=== PATIENT | female | born 1975 | race Caucasian/White ===

== ENCOUNTER → 2023-04-26 12:07 | Outpatient (CLI) | payer OTHER, SELFPAY ==
--- NOTE | ~2023-04-26 | MM_ITS ---
EXAMINATION: MM screening tavon BI w eileen HISTORY: Screening mammogram TECHNIQUE: Craniocaudal and mediolateral oblique 3-D tomosynthesis images were obtained and synthetic 2-D images were generated. CAD analysis was submitted and interpreted. COMPARISON: 01/17/2017, 12/21/2016 BREAST PARENCHYMAL COMPOSITION: The breasts are heterogeneously dense, which may obscure small masses . FINDINGS: RIGHT BREAST: No suspicious mass, calcification, or architectural distortion are identified to sugges t malignancy. There has been no suspicious interval change. LEFT BREAST: There is a possible obscured mass in the anterior third of the outer breast 3 cm from th e nipple. IMPRESSION: 1. Possible left breast mass. 2. Additional mammographic views and possible breast ultrasound are recommended. BI-RADS Category 0: Incomplete: Needs additional imaging evaluation. Reviewed, dictated and finalized at location A. CASER IMPRESSION: 1. Possible left breast mass. 2. Additional mammographic views and possible breast ultrasound are recommended . BI-RADS Category 0: Incomplete: Needs additional imaging evaluation.
== END ==
PROVIDERS: PCP Family Medicine; Visit Provider Family Medicine
DX: Z12.31 Encounter for screening mammogram for malignant neoplasm of breast (principal); N63.25 Unspecified lump in the left breast, overlapping quadrants
CPT/HCPCS: 77063; 77067

== ENCOUNTER 2023-05-08 12:44 | Outpatient (CLI) | payer OTHER, SELFPAY ==
--- NOTE | ~2023-05-08 | MMUS_ITS ---
EXAMINATION: MM diagnostic tavon LT w eileen, US breast LT complete HISTORY: Possible left mammographic breast mass reported in the anterior third of the outer breast 3 cm from the nipple on 04/26/2023 screening mammogram examinations TECHNIQUE: Additional 3-D tomosynthesis images of the left breast were performed and synthetic 2-D im ages were generated. CAD analysis was submitted and interpreted. High resolution complete left breast ultrasound examination including all 4 quadrants and subareolar area was performed. COMPARISON: 04/26/2023 bilateral screening mammogram FINDINGS: MAMMOGRAPHIC FINDINGS: Approximately 9.5 x 10.5 mm mass is suggested in the anterior upper outer left breast on coned compre ssion craniocaudal view. This is obscured by heterogeneously dense stroma on the other projections. O ther masses might be present and obscured as well by the heterogeneously dense stroma. Therefore, com plete left breast ultrasound examination was performed. ULTRASOUND: Up to approximately 7.5 x 14 mm multi septated cyst or contiguous cysts are noted at 3:00 2 cm from t he nipple, corresponding to the mammographic finding. There is through transmission and posterior enh ancement. No internal vascularity is noted. IMPRESSION: 1. Probably benign multilocular cyst or contiguous cysts at anterior 3:00 position 2. Six-month diagnostic left mammogram and left breast targeted ultrasound are recommended BI-RADS category 3, probably benign findings. Reviewed, dictated and finalized at location A. OR JAVASCRIPT DEVELOPER IMPRESSION: 1. Probably benign multilocular cyst or contiguous cysts at anterior 3:00 posit ion 2. Six-month diagnostic left mammogram and left breast targeted ultrasound are recommended BI-RADS category 3, probably benign findings.
== END 2023-05-08 12:45 | disposition home or self-care (01) ==
LOC: ANHIMG 12:45
PROVIDERS: PCP Family Medicine; Visit Provider Family Medicine
DX: N63.20 Unspecified lump in the left breast, unspecified quadrant (principal)
CPT/HCPCS: 76641; 77061; 77065; G0279

== ENCOUNTER 2023-09-25 08:03 | Outpatient (CLI) | payer OTHER, SELFPAY ==
--- NOTE | ~2023-09-25 | MMUS_ITS ---
EXAMINATION: MM diagnostic tavon LT w eileen, US breast LT complete HISTORY: Follow-up left breast mass TECHNIQUE: Additional 3-D tomosynthesis images of the left breast were performed and synthetic 2-D im ages were generated. CAD analysis was submitted and interpreted. High resolution Limited left breast ultrasound was performed. COMPARISON: Follow-up left breast mass BREAST PARENCHYMAL COMPOSITION: Not dense: There are scattered areas of fibroglandular density. FINDINGS: MAMMOGRAPHIC FINDINGS: There is a mass in the mid lateral aspect of the left breast. The mass in the upper outer quadrant of the left breast anteriorly is not as well seen on current examination. There are benign left breast calcifications. ULTRASOUND: Limited left breast ultrasound: At 3:00, 2 cm from the nipple there is a 1 cm simple cyst of the left breast. No suspicious masses to suggest malignancy. IMPRESSION: 1. Probable benign low-density mass mid lateral aspect of the left breast without definite sonographi c correlate. Benign cyst present at 3:00, 2 cm from the nipple. 2. Recommend 6 month follow-up diagnostic left mammogram BI-RADS category 3, probably benign findings. Reviewed, dictated and finalized at location A. IMPRESSION: 1. Probable benign low-density mass mid lateral aspect of the left breast witho ut definite sonographic correlate. Benign cyst present at 3:00, 2 cm from the n ipple. 2. Recommend 6 month follow-up diagnostic left mammogram BI-RADS category 3, probably benign findings.
== END 2023-09-25 08:04 ==
LOC: MICIMG 08:04
PROVIDERS: PCP Family Medicine; Visit Provider Family Medicine
DX: N63.21 Unspecified lump in the left breast, upper outer quadrant (principal)
CPT/HCPCS: 76641; 77061; 77065; G0279

== ENCOUNTER 2023-10-31 13:31 | Outpatient (CLI) | payer OTHER, SELFPAY ==
--- NOTE | ~2023-10-31 | MR_ITS ---
EXAMINATION: MR breast BI wo/w con INDICATION: Left breast mass TECHNIQUE: Axial VIBRANT pre and dynamic post contrast, Sagittal VIBRANT post contrast, Axial T2 STIR ASSET COMPARISON: Mammography in sonography dated 09/25/2023 CONTRAST: Multihance, 14 cc BREAST COMPOSITION: Scattered fibroglandular tissue FINDINGS: RIGHT BREAST: There is mild background parenchymal enhancement. No abnormal enhancement is present af ter contrast administration. No pathologically enlarged axillary or internal mammary lymph nodes are identified. LEFT BREAST: There is mild background parenchymal enhancement. No abnormal enhancement is present aft er contrast administration. No pathologically enlarged axillary or internal mammary lymph nodes are i dentified. 5 mm cyst noted in the slightly outer left breast, 3 cm posterior to the nipple. IMPRESSION: No MR evidence for malignancy. 5 mm benign left breast cyst, as detailed above. BI-RADS Category 2: Benign finding(s). Reviewed, dictated and finalized at [facility]. IMPRESSION: No MR evidence for malignancy. 5 mm benign left breast cyst, as detailed above . BI-RADS Category 2: Benign finding(s).
== END 2023-10-31 13:32 | disposition home or self-care (01) ==
PROVIDERS: PCP Family Medicine; Visit Provider Surgery
DX: N60.02 Solitary cyst of left breast (principal)
CPT/HCPCS: 77049; A9577; C8908

== ENCOUNTER 2024-10-18 08:43 | Outpatient (CLI) | payer OTHER, SELFPAY ==
--- NOTE | ~2024-10-18 | MM_ITS ---
EXAMINATION: MM diagnostic tavon BI w eileen HISTORY: Follow-up breast asymmetries. TECHNIQUE: Additional 3-D tomosynthesis images of the breasts were performed and synthetic 2-D images were generated. CAD analysis was submitted and interpreted. COMPARISON: Comparison to multiple prior studies sequentially, with oldest reviewed study dated 12/21. BREAST PARENCHYMAL COMPOSITION: Not dense: There are scattered areas of fibroglandular density. FINDINGS: The breasts are stable. No new masses, calcifications or architectural distortion in either breast to suggest sigmoid. There are benign-appearing punctate monomorphic bilateral breast calcific ations. IMPRESSION: 1. No mammographic evidence for malignancy in either breast. 2. Routine yearly screening mammogram and regular clinical breast examination are recommended. BI-RADS Category 1: Negative Reviewed, dictated and finalized at location A. IMPRESSION: 1. No mammographic evidence for malignancy in either breast. 2. Routine yearly screening mammogram and regular clinical breast examination a re recommended. BI-RADS Category 1: Negative
== END 2024-10-18 08:44 | disposition home or self-care (01) ==
LOC: MICIMG 08:44
PROVIDERS: PCP Nurse Practitioner Family; Visit Provider Surgery
DX: N63.20 Unspecified lump in the left breast, unspecified quadrant (principal); N60.09 Solitary cyst of unspecified breast; R92.8 Other abnormal and inconclusive findings on diagnostic imaging of breast
CPT/HCPCS: 77062; 77066; G0279

== ENCOUNTER 2024-12-30 13:02 | Emergency (ER) | payer OTHER, SELFPAY ==
[2024-12-30] VITALS (9 sets, daily range): BP systolic 124–145; BP diastolic 92–101; PULSE 72–99; RESP 13–21; TEMP 36.7; O2SAT 59–100
--- NOTE | ~2024-12-30 | CT_ITS ---
EXAM: CTA brain carotid - 12/30/2024 13:28 CDT History: 49 years old Female with LKW 1230, word finding difficulties, lt paresthesia, lt eye TECHNIQUE: CTA of the head and neck with intravenous contrast was performed. 3-D reconstructed image s of cerebral artery circulation were generated on a [employer] workstation. Automatic exposure contro l was used for this study. CONTRAST: 100 cc of Omnipaque 350 was used for this study COMPARISON: None available. FINDINGS: CTA: Normal branching pattern of the thoracic aorta. Great vessels of the neck are patent. RIGHT ANTERIOR CIRCULATION: Innominate and right common carotid artery is normal in caliber. No significant stenosis at the carotid bifurcation by NASCET criteria. Cervical segment of the internal carotid artery is normal in caliber. Cavernous and supraclinoid segm ents of the internal carotid artery patent. M1 segment and middle cerebral artery bifurcation are unremarkable. A1 segment, anterior communicating artery complex and A2 segment are within normal limits. LEFT ANTERIOR CIRCULATION: Left common carotid artery is normal in caliber. No significant stenosis at the carotid bifurcation by NASCET criteria. Cervical segment of the internal carotid artery is normal in caliber. Cavernous and supraclinoid segm ents of the internal carotid artery patent. M1 segment and middle cerebral artery bifurcation are unremarkable. A1 segment, anterior communicating artery complex and A2 segment are within normal limits. POSTERIOR CIRCULATION: Vertebral arteries are codominant and patent throughout the neck. Intradural vertebral arteries are normal in caliber and terminate as the basilar artery. Basilar artery is normal in caliber. P1 and P2 segments of the posterior cerebral arteries are normal in caliber. OTHER: Multilevel degenerative changes of the visualized cervical spine. Visualized lungs are clear. 4 mm no dule in the left thyroid gland, incompletely evaluated on current examination. IMPRESSION: Unremarkable CTA of the head and neck. No evidence of cerebral artery aneurysm, stenosis or mass. *REFERENCES: NASCET CRITERIA: The degree of internal carotid artery (ICA) stenosis is based on NASCET criteria. No rmal is no stenosis. Mild is less than 50% stenosis. Moderate is 50-69% stenosis. Severe is 70-99% st enosis. Total occlusion is no detectable patent lumen. Reviewed, dictated and finalized at location A. IMPRESSION: Unremarkable CTA of the head and neck. No evidence of cerebral artery aneurysm , stenosis or mass. *REFERENCES: NASCET CRITERIA: The degree of internal carotid artery (ICA) stenosis is based on NASCET criteria. Normal is no stenosis. Mild is less than 50% stenosis. Mode rate is 50-69% stenosis. Severe is 70-99% stenosis. Total occlusion is no detec table patent lumen.
--- NOTE | ~2024-12-30 | XR_ITS ---
EXAMINATION: XR chest 1V portable 12/30/2024 14:03 INDICATION: CVA PROCEDURE: AP portable chest COMPARISON: No prior studies for comparison. FINDINGS: The lungs are clear. The cardiomediastinal silhouette is within normal limits. There are no pleural effusions. There is no pneumothorax suspected. IMPRESSION: 1: NO ACUTE CARDIOPULMONARY DISEASE. Reviewed, dictated and finalized at location A.
--- NOTE | ~2024-12-30 | CT_ITS ---
EXAM: CT brain wo con - 12/30/2024 13:25 CDT History: 49 years old Female with visual changes, aphasia COMPARISON: None available. PROCEDURE: CT of the head without contrast. Axial, sagittal and coronal reformatted planes were sudhakar luated. Automatic exposure control was used for this study. FINDINGS: BRAIN PARENCHYMA: No acute hemorrhage. No mass effect or herniation. Nice-white matter differentiatio n is maintained. Mild chronic volume loss. Scattered hypodensities in subcortical and periventricular white matter, likely representing chronic microvascular ischemic changes in this age group. Atherosc lerotic calcification of the intracranial vessels is noted. VENTRICLES/ EXTRA-AXIAL SPACES: No hydrocephalus or extra-axial fluid collection. EXTRACRANIAL STRUCTURES: No calvarial fracture. IMPRESSION: No evidence for acute intracranial hemorrhage or calvarial fracture. NOTE: Acute ischemic infarction may not be immediately evident on CT scan. Follow-up CT scan and/or M RI with diffusion-weighted imaging may be helpful, as clinically warranted. Reviewed, dictated and finalized at location A. IMPRESSION: No evidence for acute intracranial hemorrhage or calvarial fracture. NOTE: Acute ischemic infarction may not be immediately evident on CT scan. Foll ow-up CT scan and/or MRI with diffusion-weighted imaging may be helpful, as cli nically warranted.
--- NOTE | 2024-12-30 13:06 | ECG_ITS ---
Test Date: 2024-12-30 13:15:04 Measurements Intervals [place] Rate: 79 P: 35 NC: 130 QRS: 12 QRSD: 86 T: 34 QT: 363 QTc: 418 Interpretive Statements SINUS RHYTHM No previous ECG available for comparison Electronically Signed On 12-30-2024 15:25:07 CDT by Jayden Schuster M.D.
--- OUTSIDE RECORDS SUMMARY | 2024-12-30 13:06 | XMS_ITS | Clinical Summary ---
Author Organization [facility] Address [address] [place] [id number] Care Team Providers Care Business Continuity Management Director Name Role Phone EbonyAlis Primary Care Provider Allergies No known active allergies Medications hydrocodone-acet aminophen 5-325 MG tablet Take 1 tablet by mouth every 6 (six) hours as needed for Pain. 12 tablet 02/20/2019 Active famotidine 20 MG tablet Take 1 tablet (20 mg total) by mouth 2 (two) times daily. 30 tablet 06/10/2020 Active Family History Medical History Relation Comments Cancer Father Cancer Maternal Grandfather Cancer Maternal Grandmother Cancer Paternal Grandfather Cancer Paternal Grandmother Relation Status Comments Father Maternal Grandfather Maternal Grandmother Paternal Grandfather Paternal Grandmother Social History Tobacco Use Types Packs/Day Years Used Date Smoking Tobacco: Never Smokeless Tobacco: Never Comments:occasional vape Alcohol Use Standard Drinks/Week Comments Yes 0 (1 standard drink = 0.6 oz pur e alcohol) Comments No Sex and Gender Information Value Date Recorded Sex Assigned at Not on file Legal Sex Female 5:30 PM CDT Gender Identity Not on file Sexual Orientation Not on file Last Filed Vital Signs Vital Sign Reading Time Taken Comments Blood Pressure 147/89 06/10/2020 2:34 PM AS400 CONSULTANT Pulse 77 06/10/2020 2:34 PM AS400 CONSULTANT Temperature 36.1 C (96.9 F) 06/10/2020 2:34 PM AS400 CONSULTANT Respiratory Rate 18 02/20/2019 8:10 PM CDT Oxygen Saturation 99% 06/10/2020 2:34 PM AS400 CONSULTANT Inhaled Oxygen Concentration - - Weight 70.3 kg (155 lb) 06/10/2020 2:34 PM AS400 CONSULTANT Height 165.1 cm (5' 5) 06/10/2020 2:34 PM AS400 CONSULTANT Body Mass Index 25.79 06/10/2020 2:34 PM AS400 CONSULTANT Plan of Treatment Health Maintenance Due Date Last Done Comments Colorectal Cancer Screening Colonoscopy (10 Years) 1973 Annual Physical 1976 Hepatitis C 1991 DTaP, Tdap and Td Vaccines ( 1 - Tdap) 1992 Hepatitis B Vaccines (1 of 3 - 19+ 3-dose series) 1992 Mammogram Screening 2013 Pneumococcal Vaccine: 50+ Years (1 of 1 - PCV) 2023 Zoster Vaccines (1 of 2) 2023 COVID-19 Vaccine (3 - 2023-2 5 season) 2024 02/18/2021, 12/31/2020 Meningococcal B Vaccine Aged Out No l onger eligible based on patient's age to complete this topic Meningococcal Vaccine Aged Out No robert matias eligible based on patient's age to complete this topic RSV Immunizations Under 20 Months Aged Out No longer eligible b ased on patient's age to complete this topic Insurance Care Teams Business Continuity Management Director Relationship Specialty Start Date End Date Alis Beck DO PCP - General FAMILY PRACTICE 05/05/21
--- OUTSIDE RECORDS SUMMARY | 2024-12-30 13:06 | XMS_ITS | Continuity of Care Document ---
Author Name [facility] Organization [facility] Care Team Providers Care Pharmaceutical Salesperson Name Role Phone [facility] Unavailable Unavailable Problems Combined list of problems from Department of Defense and Veterans Affairs facilities. It does not include entries that were removed or entered in error. 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 [facility] [place] Active Condition [facility] visit for: issue repeat prescription Inactive Condition [facility] SKIN NEOPLASM Active Condition DoD mismatch of sleep / wake schedule with lifestyle needs Inactive Condition DoD upper back pain (between shoulder blades) Inactive Condition [facility] CERVICALGIA Active Condition [facility] visit for: administrative purpose Inactive Condition DoD anxiety Active Condition DoD fear of possible cancer Active Condition DoD ADJUSTMENT DISORDER WITH DEPRESSED MOOD Inactive Condition DoD UPPER RESPIRATORY INFECTION Inactive Condition DoD MIGRAINE HEADACHE Active Condition [facility] visit for: issue medical certificate Active Condition DoD Medications Combined list of outpatient medications from Department of Defense and Veterans Affairs facilities.Medications provided include 1) outpatient medications from the last 15 months, and 2) patient-reported medications. Medication Details Route Status Patient Instructions Prescription Expires Prescription Number Last Dispense Date Ordering Provider Order Date Order Qty Source DEXTROAMPHE TAMINE-AMPH ET ER (dextroamph etamine sulf-saccha rate/amphet amine sulf-aspart ate), 30 MG, CAP ER 24H, ORAL, SCOTT [employer], 100 ea. BOTTLE Active [id number] 2023 30 Pharmac y Data Transac tion Service Facilit y LINZESS (linaclotid e), 72 MCG, CAPSULE, ORAL, [employer] 30 ea. BOTTLE Active [id number] 2023 90 Pharmac y Data Transac tion Service Facilit y Allergies, Adverse Reactions, Alerts Combined list of allergies from Department of Defense and Veterans Affairs facilities. It does not include entries that were removed or entered in error. Substance Category Reaction Severity Reaction type Status Date Reported Comments Source No Known Allergies Drug allergy (disorder) active 09/04/2008 [facility] Immunizations Combined list of available immunizations from the Department of Defense and Veterans Affairs facilities. Immunization Series Date Given Administered By Site Reaction Lot Number CVX Code Drug Orientation And Mobility Instructor Status Comments Source COVID Vaccine Moderna 2020 207 complet ed COVID Vaccine Moderna 02/18/21 Given Ambulat ory Pharmac y COVID-19, mRNA, LNP-S, PF, 100 mcg or 50 mcg dose 2020 [facility], () Not Given COVID-19, mRNA, LNP-S, PF, 100 mcg or 50 mcg dose DoD COVID-19, mRNA, LNP-S, PF, 100 mcg or 50 mcg dose 2020 [facility], () Not Given COVID-19, mRNA, LNP-S, PF, 100 mcg or 50 mcg dose DoD Encounters Combined list of: 1) Encounters from Department of Veterans Affairs facilities going backup to the last 18 months, not all VA inpatient encounters are included; 2) Encounters from the Department of Defense facilities going backup to 280 months. Location Location Details Encounter Type Encounter Number Reason For Visit Attending Provider ADM Date DC Date Status Disposition Source [facility](Ped [facility]at[facility]) OUTPATIENT [id number] NILS Stone 09/04 Released w/o Limitations [facility] OUTPATIENT [id number] ERVIN T,KALINA E PAMELA GRAY 10/08 Released w/o Limitations [facility] Element B-1) [facility] Element B-1) OUTPATIENT [id number] med issue IZA BISHOP 10/30 Released w/o Limitations [facility] Element B-1) [facility] Element C-2) OUTPATIENT [id number] ongoing cough /diffic ulty breathi ng FARZANA AGEE 05/12 Released w/o Limitations [facility] Element C-2) [facility] Element C[facility]) OUTPATIENT [id number] fu on meds FARZANA AGEE Tristin 08/17 Released w/o Limitations [facility] Element C[facility]) [facility] Element A-2) TELE CONSULT [id number] allergy meds needed JENSEN WILLIAM 10/08 [facility] Element A-2) [facility] Element C[facility]2) OUTPATIENT [id number] anxiety -med to fly-(mo m of pt yesterd ay) ANUEL FARZANA N 10/08 Released w/o Limitations [facility] Element C[facility]) [facility] Element C[facility]) TELE CONSULT [id number] presc refill /citalo prayosef ANTYosef FARZANA N 11/02 [facility] Element C[facility]) [facility] Element C[facility]) OUTPATIENT [id number] neck pain/ca n't move to left/ri ght/up or down ANUEL FARZANA Tristin 11/16 Released w/o Limitations [facility] Element C[facility]) [facility]) OUTPATIENT [id number] 35 y/o F: s/p fall, back px PEDRO MAY 12/03 Released w/o Limitations [facility] Emer[facility]) [facility] Element C-2) TELE CONSULT [id number] RX REFILL NEEDED NATALIO BURGER 01/18 [facility] Element C-2) [facility] Element C[facility]) OUTPATIENT [id number] f/u for meds IZA BISHOP 02/11 Released w/o Limitations [facility] Element C-2) [facility] Element C-2) TELE CONSULT [id number] RX REFILL/ ARMANDO WRIGHTEUNICE CANELA Arsen 04/28 [facility] Element C-2) [address] [place] [address] [facility] ([facility]Sco tt [facility] Fam Res [place] [place]) TELE CONSULT [id number] Notes Entered by: NEISHA STERN 30 Aug 2011 1558 ------- ------- ------- ------- -- MIKE SANCHEZ 08/[address] [place] [address] [facility] ([facility])(S cott [facility]am Res [facility]) [address] [place] [address] [facility] ([facility]Sco tt [facility]am Res [place]) OUTPATIENT [id number] [facility] JUAN THOMSON 09/19 Released w/o Limitations [address] [place] [address] [facility] ([facility]S cott [facility] Fam Res [place]) [address] [place] [address] Blane COLLAZO ([facility])(Sco tt [facility] Fam Res [place]m [place]) TELE CONSULT [id number] Notes Entered by: Dora DELGADO 27 Oct 2011 1312 ------- ------- ------- ------- -- Med refill citalop nancy 20 mg twice daily [id number] Alix/ JUAN Schwab 10/[address] [place] [address] Blane COLLAZO [facility]S cott [facility] Fam Res [place]m [place]) [address] [place] [address] Blane COLLAZO [facility]Sco tt [facility] Fam Res [place]m Green) TELE CONSULT [id number] Notes Entered by: TONYA MESSINA CIA 26 Jan 2012 0852 ------- ------- ------- ------- -- Med refill - alix - cad/[facility] HEMANT PITTMAN 01/[address] [place] [address] Blane COLLAZO [facility]S cott [facility] Fam Res [place]m [place]) [address] [place] [address] Blane COLLAZO [facility])(Sco tt [facility] Fam Res Tm Green) OUTPATIENT [id number] f/u Anxiety JUAN THOMSON 01/26 Released w/o Limitations [address] [place] [address] Blane COLLAZO [facility])(S [facility] Fam Res Tm Green) [address] [place] [address] Blane [facility])(Sco tt [facility] Fam Res Tm Green) OUTPATIENT [id number] Crampin g stomach area [phone] RAJESH BARKER 07/09 Released w/o Limitations [address] [place] [address] Blane COLLAZO [facility]S [facility] Fam Res Tm Green) [address] [place] [address] [facility]Sco tt [facility] FAMRES Tm Blue) TELE CONSULT [id number] Notes Entered by: GLADIS DAUGHERTY 09 Jul 2012 1733 ------- ------- ------- ------- -- Dr. Praveena Copeland: Pt needs mammogr am order; GLADIS DAUGHERTY 07/[address] [place] [address] Blane MERHipolito [facility] FAMRES Tm Blue) Procedures Combined list of: 1) Procedures from Department of Veterans Affairs facilities going back up to thelast 18 months, not all VA non-surgical procedures are included; 2) All procedures from the Department of Defense facilities. Procedure Procedure Type Code Date Perfomer Comments Sourc e No data available for this section Ambulatory Pharmacy PSYCHIATRIC EVALUATION OF HOSPITAL RECORDS, OTHER PSYCHIATRIC REPORTS, PSYCHOMETRIC AND/OR PROJECTIVE TESTS, AND OTHER ACCUMULATED DATA FOR MEDICALDIAGNOSTIC PURPOSES 09/11/19 09 [facility] TELE ASSESS & MGT SRV PROV QUAL NONPHYS HLTH CARE PRO TO EST PAT,PARENT,GUARD NOT ORIG REL ASSESS & MGT SRV PROV W/IN PREV 7 DAYS NOR LEAD ASSESS & MGT SRV/PX W/IN NXT 24 HR/SOON APT;5-10 MIN MED DIS 10/27/19 12 [facility] TELE ASSESS & MGT SRV PROV QUAL NONPHYS HLTH CARE PRO TO EST PAT,PARENT,GUARD NOT ORIG REL ASSESS & MGT SRV PROV W/IN PREV 7 DAYS NOR LEAD ASSESS & MGT SRV/PX W/IN NXT 24 HR/SOON APT;5-10 MIN MED DIS 08/30/19 12 [facility] Non-Physician Phone Call To Patient/Provider Brief (5-10min) Non-Physician Phone Call To Patient/Provide r Brief (5-10min) [id number] 10/27/19 12 ALIXJUAN BARTLETT RUY [facility] Non-Physician Phone Call To Patient/Provider Brief (5-10min) Non-Physician Phone Call To Patient/Provide r Brief (5-10min) [id number] 08/31/19 12 MIKE SANCHEZ [facility] Psychiatric Evaluation Review of Records and Reports Psychiatric Evaluation Review of Records and Reports [id number] 09/11/19 09 ALLYSON HIGGINBOTHAM [facility] Social History Combined list of available smoking, tobacco, and other social history from Department of Defense and Veterans Affairs facilities. Social History Type Response Date Comment [facility] e This section is an empty social history section. [facility] Assessment and Plan Combined list of future care activities from Department of Defense and Veterans Affairs facilities (e.g., assessment and plan notes, appointments, orders, and referrals). Additional future care activities may be listed in the Plan of Care section. Result Assessment and Plan Date Source Assessment and Plan No data available for this section 12/30/2024 Ambulatory Pharmacy Functional Status Combined list of recent functional and cognitive assessments recorded at [facility] and [facility] [place]VA Functional Pilot Measurement (FIM) Scale: 1 = Total Assistance (Subject = 0% +), 2 = Maximal Assistance (Subject = 25% +), 3 = Moderate Assistance (Subject = 50% +), 4 = Minimal Assistance (Subject = 75% +), 5 = Supervision, 6 = Modified Pilot (Device), 7 = Complete Pilot (Timely, Safely). Assessment Date/Time Source Assessment Type Assessment Skill Assessment Score Assessment Details No data available for this section
--- NOTE | 2024-12-30 13:28 | ED.GENADULT ---
HPI - General Adult General Chief complaint: Unspecified Stated complaint: visual changes, tingling Time Seen by Provider: 12/30/24 13:26 Source: patient Mode of arrival: ambulatory Limitations: no limitations History of Present Illness HPI narrative: Patient presents with concern for neurological symptoms. Her last known well was at 12:30 p.m. when she was at work and she started experiencing tingling in her left arm. She thinks there have also symptoms in her bilateral feet or at least left greater than right. She seemed to since a bright light in her eyes, denies curtain like defect. This has never happened before. She is not on anticoagulation. She had difficulty finding words same what she wanted to say. She also endorses cotton mouth. She believes her symptoms are improving. Related Data Allergies Allergy/AdvReac Type Severity Reaction Status Date / Time No Known Allergies Allergy Verified 12/30/24 13:59 [facility] Past Medical History Medical History (Updated 01/01/25 @ 11:48 by Kaitlin Bianchi APRN) Breast cyst Obesity IBS (irritable bowel syndrome) Attention Deficit Hyperactivity Disorder (ADHD) Surgical History Surgical History H/O: hysterectomy Family History Family History Grandparent Hypertension Malignant neoplasm of prostate Family history of type 2 diabetes mellitus Family history of heart disease in male family member before age 55 Father Cancer Social History Social History (Updated 12/31/24 @ 11:15 by Jose Gonzáles) Social History: 12/31/24 very confident with medical forms Smoking status: Never smoker Tobacco type: e-cigarettes/vaping Alcohol intake: current Drinks per week: 4 Alcohol use details: wine Substance use: never Substance use type: does not use Do You Feel Safe in your Home?: Yes Lack of Transportation: No Lack of Food: Never True Current Housing: I Have Housing Concerned About Future Housing: No Difficulty Paying Gas/Electric Bills: No Difficulty Paying for Meds: No Currently Unemployed: No Education: Associate Degree Difficulty w/ Childcare or Family Care: No Living arrangements: with family Occupation/Education: occupation Gender identity (if verbalized by the patient): Female Spiritual care concerns: No Agree to blood products: Yes Exam Narrative: GENERAL: Well-appearing, well-nourished, and in no acute distress. HEAD: Normocephalic, atraumatic. EYES: Non injected, non icteric. Horizontal extraocular movements intact. No visual loss assessment of visual lincoln. ENT: Nares clear, no rhinorrhea or epistaxis. Gross auditory acuity intact. NECK: Supple. No meningismus. CHEST: Speaking in full sentences. No respiratory distress. HEART: Regular rate and rhythm. . ABDOMEN: Soft, nondistended. No rigidity or guarding. Not peritoneal EXTREMITIES: Normal range of motion. No lower extremity edema. SKIN: Warm, dry, no rash. NEURO: No focal deficits. Alert and oriented. Answering questions though she does get her age incorrect. Following commands. Normal speech without aphasia or dysarthria. Normal symmetry without facial palsy. No motor drift x4 extremities. No ataxia on [id number]. Bilateral sensation intact in upper and lower extremities. No extinction. PSYCH: Normal mood and affect. Course Vital Signs Vital signs: Vital Signs Pulse Rate 91 12/30/24 13:47 Respiratory Rate 21 H 12/30/24 13:47 Blood Pressure 139/92 H 12/30/24 13:47 Pulse Oximetry 100 12/30/24 13:47 Temperature 98.0 F 12/30/24 13:56 Pulse Rate 75 12/30/24 14:16 Respiratory Rate 13 12/30/24 14:16 Blood Pressure 142/95 H 12/30/24 14:15 Pulse Oximetry 59 L 12/30/24 14:11 Oxygen Delivery Room Air 12/30/24 13:56 Medical Decision Making [facility] Narrative Medical decision making narrative: This is a 49 year old female who presents to the emergency department with concern for possible stroke. Last known well is 1230. The patient is protecting their airway which is patent. An IV is established by nursing staff blood work sent to the lab for evaluation. An EKG will be performed. Accu-Chek was 97. NIHSS was evaluated per below. The patient was transported immediately to CT scan per stroke protocol for evaluation of acute intracranial bleed. In the emergency department she is afebrile with vital signs notable for mild hypertension and slight tachypnea. NIHSS Level Of consciousness: 0 Month and age: 1 (stated she was 48 years old; had to be corrected) Follows commands: 0 Gaze palsy: 0 Visual lincoln: 0 Facial palsy: 0 Left arm motor drift: 0 Right arm motor drift:0 Left leg motor drift:0 Right leg motor drift:0 Limb ataxia:0 Sensation: 0 Aphasia: 0 Dysarthria:0 Extinction: 0 Total: 1 - patient has some word finding difficulty. She also mixes up right and left half of the time (once she recognizes her mistake and the other time she does not) DIFFERENTIAL DIAGNOSES Considered Stroke (CVA / TIA) mimics including but not limited to: (complex/ocular) migraines, hypoglycemia, seizures/Caleb's paralysis, sepsis/severe infections in patients with prior strokes (e.g. recrudescence), syncope, brain masses, transient global amnesia, panic attack/hyperventilation, and conversion disorders. CT per stroke protocol as below. Labs including troponin unremarkable other than Mild thrombocytosis. . UDS does test positive for amphetamines although patient is prescribed dextroamphetamine/amphetamine ER (i.e. Adderall) for her ADHD. Improving neuro exam more consistent with TIA (cerebral thrombus/embolus without infarct) ABCD2 Risk Score Age greater than or equal to 60: [Yes = 1, No = 0] : 0 Initial SBP greater than or equal to 140 or greater than or equal to DBP ?90 [Yes = 1, No = 0]: 1 (slightly) Clinical features of TIA: [ Unilateral weakness +2, Speech impairment without weakness +1, other symptoms = 0]: 0 Duration of symptoms: [Less than 10 minutes = 0, 10-59 min = 1, greater than or equal to 60 min = 2 ] : 2 Hx of Diabetes [Yes = 1, No = 0] : 0 Total Score : 3 Per the validation study, 0-3 points low risk confers a 2-day stroke risk of 1.0% and a 7-day stroke risk of 1.2% and a 90-day stroke risk of 3.1%. As patient is approximately 48 years but has no history diabetes, there is concern for vasculitis versus hypercoagulable state so order ESR, VDRL/RPR, SINCERE, dsDNA, protein C & S, factor V Leiden mutation, and antiphospholipid studies. Many of these are send out labs and will need to be followed up on. Shared decision making and We discussed possible admission for further workup including MRI and possible results of the above studies (though many will likely be send outs and take several days for results). Patient's symptoms have completely resolved and she is feeling much better. Would like to be discharged and follow up with her primary care provider. This is also reasonable but we discussed strict ED return precautions and she verifies understanding and is in agreement. Vital Signs Vital Signs: Vital Signs Pulse Rate 91 12/30/24 13:47 Respiratory Rate 21 H 12/30/24 13:47 Blood Pressure 139/92 H 12/30/24 13:47 Pulse Oximetry 100 12/30/24 13:47 Temperature 98.0 F 12/30/24 13:56 Pulse Rate 75 12/30/24 14:16 Respiratory Rate 13 12/30/24 14:16 Blood Pressure 142/95 H 12/30/24 14:15 Pulse Oximetry 59 L 12/30/24 14:11 Oxygen Delivery Room Air 12/30/24 13:56 Lab Data Lab results reviewed: Yes I reviewed the patient's lab results. 12/30/24 13:35 12/30/24 13:35 Labs: Lab Results 12/30/24 12/30/24 12/30/24 Range/Units 13:25 13:35 14:09 WBC 9.3 (4.5-10.0) K/mm3 RBC 4.38 (4.2-5.4) M/mm3 Hgb 13.4 (12.0-15.0) g/dL Hct 40.9 (37.0-47.0) % MCV 93.4 (80-100) fl MCH 30.6 (26-34) pg MCHC 32.8 (32-36) g/dl RDW 12.0 (11.5-14.5) % Plt Count 380 H (150-375) k/mm3 MPV 8.7 (7.4-10.4) fl Immature Gran % (Auto) 0.2 (0-0.5) % Neut % (Auto) 54.5 (45.5-73.1) % Lymph % (Auto) 38.4 (18.3-44.2) % [place] % (Auto) 6.1 (2.6-8.5) % Eos % (Auto) 0.4 (0-4.4) % Baso % (Auto) 0.4 (0.2-1.2) % Lymph # (Auto) 3.56 H (0.9-3.2) K/mm3 [place] # (Auto) 0.6 (0.1-0.6) K/mm3 Eos # (Auto) 0.0 (0-0.3) K/mm3 Baso # (Auto) 0.0 (0.0-0.1) K/mm3 Abs Immat Gran (auto) 0.02 (0.00-0.031) K/mm3 Absolute Neuts (auto) 5.0 (1.3-6.7) K/mm3 Absolute Nucleated RBC 0.000 (0.0-0.012) K/mm3 Nucleated RBC % 0.0 (0.0-0.2) % ESR (0-20) mm/hr PT 13.4 (11.1-14.7) Seconds INR 1.0 APTT 26.9 (22.3-36.8) Seconds Protein C Antigen (60-150) % Free Protein S (61-136) % Total Protein S (60-150) % Factor V Leiden (.) Factor V Leiden Comment (.) Sodium 136 L (137-145) mmol/L Potassium 3.9 (3.4-5.0) mmol/L Chloride 103 (98-107) mmol/L Carbon Dioxide 24 (22-30) mmol/L Anion Gap 9 (4-12) mmol/L BUN 17 (7-17) mg/dL Creatinine 0.77 (0.7-1.0) mg/dL Estim Creat Clear Calc Not Reportable Estimated GFR > 60 (59 - ) Glucose 94 (65-110) mg/dL POC Capillary Glucose 97 (65-105) mg/dl Calcium 9.6 (8.4-10.2) mg/dL Total Bilirubin 0.5 (0.2-1.3) mg/dL AST 29 (14-36) U/L ALT 21 (6-35) U/L Alkaline Phosphatase 52 (38-126) U/L Troponin I < 0.012 (0.000-0.034) ng/mL Total Protein 7.5 (6.3-8.2) g/dL Albumin 4.6 (3.5-5.1) g/dL Urine Color Yellow (Yellow) Urine Appearance Clear (Clear) Urine pH 5.5 (5.0-9.0) Ur Specific [place] 1.043 H (1.001-1.035) Urine Protein Negative (Negative) mg/dL Urine Glucose (UA) Negative (Negative) mg/dL Urine Ketones Negative (Negative) mg/dL Ur Blood (Man) Negative (Negative) Urine Nitrate Negative (Negative) Urine Bilirubin Negative (Negative) Urine Urobilinogen 0.2 (<2.0) mg/dL Add Ur Microanalysis Reviewed Leukocyte Esterase Rfl 1+ H (Negative) LYDIA/UL Urine RBC 0-2 (0-2) /hpf Urine WBC 0-5 (0-3) /hpf Ur Squamous Epith Cells None seen (Few) /hpf Urine Bacteria None seen /hpf Urine Casts 0-2 Urine Opiates Screen Negative (Negative) Urine Methadone Screen Negative (Negative) Ur Barbiturates Screen Negative (Negative) Ur Phencyclidine Scrn Negative (Negative) Ur Amphetamine Screen Positive A (Negative) U Benzodiazepines Scrn Negative (Negative) Urine Cocaine Screen Negative (Negative) U Cannabinoids Screen Negative (Negative) Ethyl Alcohol < 10 (<10) mg/dL SINCERE Screen (.) Double Strand DNA Ab (0-9) IU/mL Beta-2 GPI IgG Ab (0-20) Beta-2 GPI IgM Ab (0-32) Beta-2 GPI IgA Ab (0-25) Anti-Cardiolipin IgG Ab (0-14) GPL U/mL Anti-Cardiolipin IgA Ab (0-11) APL U/mL Anti-Cardiolipin IgM Ab (0-12) MPL U/mL Syphilis IgG/IgM Ab (Nonreactive) 12/30/24 Range/Units 16:34 WBC (4.5-10.0) K/mm3 RBC (4.2-5.4) M/mm3 Hgb (12.0-15.0) g/dL Hct (37.0-47.0) % MCV (80-100) fl MCH (26-34) pg MCHC (32-36) g/dl RDW (11.5-14.5) % Plt Count (150-375) k/mm3 MPV (7.4-10.4) fl Immature Gran % (Auto) (0-0.5) % Neut % (Auto) (45.5-73.1) % Lymph % (Auto) (18.3-44.2) % [place] % (Auto) (2.6-8.5) % Eos % (Auto) (0-4.4) % Baso % (Auto) (0.2-1.2) % Lymph # (Auto) (0.9-3.2) K/mm3 [place] # (Auto) (0.1-0.6) K/mm3 Eos # (Auto) (0-0.3) K/mm3 Baso # (Auto) (0.0-0.1) K/mm3 Abs Immat Gran (auto) (0.00-0.031) K/mm3 Absolute Neuts (auto) (1.3-6.7) K/mm3 Absolute Nucleated RBC (0.0-0.012) K/mm3 Nucleated RBC % (0.0-0.2) % ESR 7 (0-20) mm/hr PT (11.1-14.7) Seconds INR APTT (22.3-36.8) Seconds Protein C Antigen 122 (60-150) % Free Protein S 121 (61-136) % Total Protein S 107 (60-150) % Factor V Leiden Comment (.) Factor V Leiden Comment Comment (.) Sodium (137-145) mmol/L Potassium (3.4-5.0) mmol/L Chloride (98-107) mmol/L Carbon Dioxide (22-30) mmol/L Anion Gap (4-12) mmol/L BUN (7-17) mg/dL Creatinine (0.7-1.0) mg/dL Estim Creat Clear Calc Estimated GFR (59 - ) Glucose (65-110) mg/dL POC Capillary Glucose (65-105) mg/dl Calcium (8.4-10.2) mg/dL Total Bilirubin (0.2-1.3) mg/dL AST (14-36) U/L ALT (6-35) U/L Alkaline Phosphatase (38-126) U/L Troponin I (0.000-0.034) ng/mL Total Protein (6.3-8.2) g/dL Albumin (3.5-5.1) g/dL Urine Color (Yellow) Urine Appearance (Clear) Urine pH (5.0-9.0) Ur Specific [place] (1.001-1.035) Urine Protein (Negative) mg/dL Urine Glucose (UA) (Negative) mg/dL Urine Ketones (Negative) mg/dL Ur Blood (Man) (Negative) Urine Nitrate (Negative) Urine Bilirubin (Negative) Urine Urobilinogen (<2.0) mg/dL Add Ur Microanalysis Leukocyte Esterase Rfl (Negative) LYDIA/UL Urine RBC (0-2) /hpf Urine WBC (0-3) /hpf Ur Squamous Epith Cells (Few) /hpf Urine Bacteria /hpf Urine Casts Urine Opiates Screen (Negative) Urine Methadone Screen (Negative) Ur Barbiturates Screen (Negative) Ur Phencyclidine Scrn (Negative) Ur Amphetamine Screen (Negative) U Benzodiazepines Scrn (Negative) Urine Cocaine Screen (Negative) U Cannabinoids Screen (Negative) Ethyl Alcohol (<10) mg/dL SINCERE Screen Negative (.) Double Strand DNA Ab <1 (0-9) IU/mL Beta-2 GPI IgG Ab <9 (0-20) Beta-2 GPI IgM Ab <9 (0-32) Beta-2 GPI IgA Ab <9 (0-25) Anti-Cardiolipin IgG Ab <9 (0-14) GPL U/mL Anti-Cardiolipin IgA Ab <9 (0-11) APL U/mL Anti-Cardiolipin IgM Ab <9 (0-12) MPL U/mL Syphilis IgG/IgM Ab Non-reactive (Nonreactive) Imaging Data Radiologist's impression: IMPRESSION: No evidence for acute intracranial hemorrhage or calvarial fracture. NOTE: Acute ischemic infarction may not be immediately evident on CT scan. Follow-up CT scan and/or MRI with diffusion-weighted imaging may be helpful, as clinically warranted. IMPRESSION: 1: NO ACUTE CARDIOPULMONARY DISEASE. IMPRESSION: Unremarkable CTA of the head and neck. No evidence of cerebral artery aneurysm, stenosis or mass. *REFERENCES: NASCET CRITERIA: The degree of internal carotid artery (ICA) stenosis is based on NASCET criteria. Normal is no stenosis. Mild is less than 50% stenosis. Moderate is 50-69% stenosis. Severe is 70-99% stenosis. Total occlusion is no detectable patent lumen. ECG Data EKG #1: Attestation: I personally reviewed and interpreted this ECG as follows: ECG completion date: 12/30/24 ECG completion time: 13:15 Interpretation: Normal sinus rhythm at a rate of 79 beats per minute. SC interval 130. QRS 86. QT/QTC 363/418. Good R-wave progression across the precordial leads. T-wave inversion versus biphasic in lead 3 but upright in normal in contiguous inferior leads. No other T-wave inversions. Discharge Plan Discharge Clinical Impression: Word finding difficulty, Thrombocytosis Patient Disposition: Home Condition: Stable Instructions: Antibiotic Form, Transient Ischemic Attack (ED) Additional Instructions: As we discussed, follow-up with your primary care provider to discuss obtaining an MRI of brain and brainstem with and without contrast in the outpaient setting. They can also follow-up on the labs that were obtained today and remain in process given they are send out labs. Do not hesitate to return to the emergency department immediately with any new, worsening, recurrent symptoms. Patient Language: Turkmen Prescriptions: No Action zolpidem 5 mg tablet 5 mg PO QHS Qty: 20 0RF Patient Comments: pt longer taking Rx Instructions: may repeat once if no response in 30-60 minutes rosuvastatin 10 mg tablet 10 mg PO DAILY Qty: 90 1RF aspirin [Adult Aspirin Regimen] 81 mg tablet,delayed release (DR/EC) 81 mg PO DAILY Qty: 90 1RF amitriptyline 10 mg tablet 10 mg PO QHS Qty: 90 1RF dextroamphetamine-amphetamine 25 mg capsule,extended release 24hr 25 mg PO QAM Qty: 30 0RF Patient Comments: pt no longer taking Follow-up/Referrals: Kaitlin Bianchi APRN [Primary Care Provider] - Stand Alone Forms: Work/School Release IP Time of Disposition: 17:02
--- OUTSIDE RECORDS SUMMARY | 2024-12-30 13:44 | XMS_ITS | Clinical Summary ---
Author Organization [facility] Address [address] [place] [id number] Care Team Providers Care Reiki Practitioner Name Role Phone EbonyAlis Primary Care Provider [...] Comments Blood Pressure 147/89 06/10/2020 2:34 PM MEDICAL [facility]ICE Pulse 77 06/10/2020 2:34 PM [facility]ICAL [facility]ICE Temperature 36.1 C (96.9 F) 06/10/2020 2:34 PM [facility]ICAL [facility]ICE Respiratory Rate 18 02/20/2019 8:10 PM CDT Oxygen Saturation 99% 06/10/2020 2:34 PM [facility]ICE Inhaled Oxygen Concentration - - Weight 70.3 kg (155 lb) 06/10/2020 2:34 PM [facility] Height 165.1 cm (5' 5) 06/10/2020 2:34 PM MEDICAL DEVICE Body Mass Index 25.79 06/10/2020 2:34 PM MEDICAL DEVICE Plan of Treatment Health Maintenance Due Date [...] to complete this topic Insurance Care Teams Reiki Practitioner Relationship Specialty Start Date End Date Alis Beck DO PCP - General FAMILY PRACTICE 05/05/21
--- OUTSIDE RECORDS SUMMARY | 2024-12-30 13:44 | XMS_ITS | Continuity of Care Document ---
Author Name [facility] Organization [facility] Care Team Providers Care Umbrella Tipper Hand Name Role Phone [facility] Unavailable Unavailable Problems Combined list of problems [...] DoD SEBACEOUS GLAND DISORDER HYPERPLASIA Inactive Condition [facility] ACROCHORDON Active Condition [facility] visit for: issue repeat prescription Inactive Condition [facility] SKIN NEOPLASM Active Condition Do[facility] mismatch of sleep / wake schedule with lifestyle needs Inactive Condition Do[facility] upper back pain (between shoulder blades) Inactive Condition [facility] CERVICALGIA Active Condition [facility] visit for: administrative purpose Inactive Condition Do[facility] anxiety Active Condition [facility] fear of possible cancer Active Condition [facility] ADJUSTMENT DISORDER WITH DEPRESSED MOOD Inactive Condition [facility] UPPER RESPIRATORY INFECTION Inactive Condition [facility] MIGRAINE HEADACHE Active Condition [facility] visit for: issue medical certificate Active Condition [...] ORAL, SCOTT PHARMACE, 100 ea. BOTTLE Active [id number] 4 2023 30 Pharmac y Data Transac tion Service Facilit y LINZESS (linaclotid e), 72 MCG, CAPSULE, ORAL, [employer] 30 ea. BOTTLE Active [id number] 4 2023 90 Pharmac y Data Transac tion Service Facilit y Allergies, Adverse Reactions, Alerts Combined list of allergies from Department of Defense and Veterans Affairs facilities. It does not include entries that were removed or entered in error. Substance Category Reaction Severity Reaction type Status Date Reported Comments Source No Known Allergies Drug allergy (disorder) active 09/04/2008 [facility] Immunizations Combined list of available immunizations from the Department of Defense and Veterans Affairs facilities. Immunization Series Date Given Administered By Site Reaction Lot Number CVX Code Drug Cab Driver Status Comments Source COVID Vaccine Moderna 2020 [...] ADM Date DC Date Status Disposition Source [facility](Ped iatric Clinic) OUTPATIENT [id number] NILS Stone 09/04 Released w/o Limitations [facility] Element B-1) OUTPATIENT [id number] ERVIN T,KALINA E PAMELA GRAY 10/08 Released w/o Limitations [facility] Element B-1) [facility] Element B-1) OUTPATIENT [id number] med issue IZA BISHOP 10/30 Released w/o Limitations [facility] Element B-1) [facility] Element C-2) OUTPATIENT [id number] ongoing cough /diffic ulty breathi ng FARZANA AGEE 05/12 Released w/o Limitations [facility] Element C-2) [facility] Element C-2) OUTPATIENT [id number] fu on meds FARZANA AGEE Tristin 08/17 Released w/o Limitations [facility] Element C-2) [facility] Element A-2) TELE CONSULT [id number] allergy meds needed JENSEN WILLIAM 10/08 [facility] Element A-2) [facility] Element C-2) OUTPATIENT [id number] anxiety -med to fly-(mo m of pt yesterd ay) ANUEL FARZANA N 10/08 Released w/o Limitations [facility] Element C[facility]) [facility] Element C-[facility]) TELE CONSULT [id number] presc refill /citalo prayosef ANTYosef FARZANA N 11/02 [facility] Element C-2) [facility] Element C[facility]) OUTPATIENT [id number] neck pain/ca n't move to left/ri ght/up or down ANUEL FARZANA Tristin 11/16 Released w/o Limitations [facility] Element C-2) [facility]) OUTPATIENT [id number] 35 y/o F: s/p fall, back px PEDRO MAY 12/03 Released w/o Limitations [facility]) [facility] Element C-2) TELE CONSULT [id number] RX REFILL NEEDED NATALIO BURGER 01/18 [facility] Element C[facility]2) [facility] Element C-2) OUTPATIENT [id number] f/u for meds IZA BISHOP 02/11 Released w/o Limitations [facility] Element C-2) [facility] Element C-2) TELE CONSULT [id number] RX REFILL/ ARMANDO WRIGHTEUNICE CANELA Arsen 04/28 [facility] Element C-2) [address] [place] [address] Blane COLLAZO ([facility]Sco tt [facility] [place] [place]) TELE CONSULT [id number] Notes Entered by: NEISHA STERN 30 Aug 2011 1558 ------- ------- ------- ------- -- MIKE SANCHEZ 08/[address] [place] [address] Blane COLLAZO ([facility])(S cott [facility]) [address] [place] [address] Blane COLLAZO ([facility])(Sco tt [facility] F[facility] [place]) OUTPATIENT [id number] [facility] JUAN THOMSON 09/19 Released w/o Limitations [address] [place] [address] Blane COLLAZO ([facility])(S cott [facility] Fam Res [place]) [address] [place] [address] Blane COLLAZO ([facility])(Sco tt [facility] Fam Res [place]) TELE CONSULT [id number] Notes Entered by: Dora DELGADO 27 Oct 2011 1312 ------- ------- ------- ------- -- Med refill citalop nancy 20 mg twice daily [id number] Amna/ JUAN Schwab 10/[address] [place] [address] Blane COLLAZO [facility]S cott [facility] Fam Res [place]) [address] [place] [address] Blane COLLAZO [facility])(Sco tt [facility] Fam Res [place]) TELE CONSULT [id number] Notes Entered by: TONYA MESSINA CIA 26 Jan 2012 0852 ------- ------- ------- ------- -- Med refill - amna - cad/[facility] HEMANT PITTMAN 01/[address] [place] [address] Blane COLLAZO [facility]S cott [facility] Fam Res [place]) [address] [place] [address] Blane COLLAZO [facility])(Sco tt [facility] Fam Res [place]) OUTPATIENT [id number] f/u Anxiety JUAN THOMSON 01/26 Released w/o Limitations [address] [place] [address] Blane COLLAZO [facility]S [facility] Fam Res [place] [place]) [address] [place] [address] [facility] [place]) OUTPATIENT [id number] Crampin g stomach area [phone] RAJESH BARKER 07/09 Released w/o Limitations [address] [place] [address] Blane DEL ANGELHipolito [facility]S [facility] Fam Res [employer] [place]) [address] [place] [address] [facility]Sco tt [facility] FAM[facility] Tm Blue) TELE CONSULT [id number] Notes Entered by: GLADIS DAUGHERTY 09 Jul 2012 1733 ------- ------- ------- ------- -- Dr. Praveena Copeland: Pt needs mammogr am order; GLADIS DAUGHERTY 07/[address] [place] [address] Blane MERHipolito [facility])([facility] FAM[facility] Tm Blue) Procedures Combined list of: 1) Procedures from Department of Veterans Affairs facilities going back up to thelast 18 months, not all VA non-surgical procedures are included; 2) All procedures from the Department of Defense facilities. Procedure Procedure Type Code Date Perfomer Comments Sourc e PSYCHIATRIC EVALUATION OF HOSPITAL RECORDS, OTHER PSYCHIATRIC REPORTS, PSYCHOMETRIC AND/OR PROJECTIVE TESTS, AND OTHER ACCUMULATED DATA FOR MEDICALDIAGNOSTIC PURPOSES 09/11/19 09 [facility] TELE ASSESS & MGT SRV PROV QUAL NONPHYS HLTH CARE PRO TO EST PAT,PARENT,GUARD NOT ORIG REL ASSESS & MGT SRV PROV W/IN PREV 7 DAYS NOR LEAD ASSESS & MGT SRV/PX W/IN NXT 24 HR/SOON APT;5-10 MIN MED DIS 10/27/19 12 [facility] TELE ASSESS & MGT SRV PROV QUAL NONPHYS HLTH CARE PRO TO EST PAT,PARENT,GUARD NOT ORIG REL ASSESS & MGT SRV PROV W/IN PREV 7 DAYS NOR LEAD ASSESS & MGT SRV/PX W/IN NXT 24 HR/SOON APT;5-10 MIN MED DIS 08/30/19 12 [facility] Non-Physician Phone Call To Patient/Provider Brief (5-10min) Non-Physician Phone Call To Patient/Provide r Brief (5-10min) [id number] 10/27/19 12 JUAN THOMSON [facility] Non-Physician Phone Call To Patient/Provider Brief (5-10min) Non-Physician Phone Call To Patient/Provide r Brief (5-10min) [id number] 08/31/19 12 MIKE SANCHEZ [facility] Psychiatric Evaluation Review of Records and Reports Psychiatric Evaluation Review of Records and Reports [id number] 09/11/19 09 ALLYSON HIGGINBOTHAM [facility] No data available for this section Ambulatory Pharmacy Social History Combined list of available smoking, tobacco, and other social history from Department of Defense and Veterans Affairs facilities. Social History Type Response Date Comment [facility] e This section is an empty social history section. DoD Assessment and Plan Combined list of future [...] at Department of Defense and Veterans Affairs (ID).VA Functional [place] Measurement (FIM) Scale: 1 = Total Assistance (Subject = 0% +), 2 = Maximal Assistance (Subject = 25% +), 3 = Moderate Assistance (Subject = 50% +), 4 = Minimal Assistance (Subject = 75% +), 5 = Supervision, 6 = Modified [place] (Device), 7 = Complete [place] (Timely, Safely). Assessment Date/Time Source Assessment Type Assessment Skill Assessment Score Assessment Details No data available for this section
[2024-12-30 13:49] LABS: Hematocrit 40.9 % (37.0-47.0); Hemoglobin 13.4 g/dL (12.0-15.0); Immature Granulocyte Percent A 0.2 % (0-0.5); Lymphocytes Absolute Auto 3.56 K/mm3 (0.9-3.2); Mean Corpuscular HGB Conc 32.8 g/dl (32-36); Mean Corpuscular Hemoglobin 30.6 pg (26-34); Mean Corpuscular Volume 93.4 fl (80-100); Nucleated Red Blood Cells Absolute Auto 0.000 K/mm3 (0.0-0.012); Nucleated Red Blood Cells Perc 0.0 % (0.0-0.2); Platelet Count Result 380 k/mm3 (150-375); Red Blood Count 4.38 M/mm3 (4.2-5.4); White Blood Count 9.3 K/mm3 (4.5-10.0)
[2024-12-30 13:56] LABS: Alanine Aminotransferase 21 U/L (6-35); Albumin Level 4.6 g/dL (3.5-5.1); Alkaline Phosphatase 52 U/L (38-126); Anion Gap 9 mmol/L (4-12); Aspartate Amino Transferase 29 U/L (14-36); Bilirubin,Total 0.5 mg/dL (0.2-1.3); Blood Urea Nitrogen 17 mg/dL (7-17); Calcium 9.6 mg/dL (8.4-10.2); Carbon Dioxide 24 mmol/L (22-30); Chloride 103 mmol/L (98-107); Estimated Glomerular Filt Rate > 60; Glucose 94 mg/dL (65-110); Potassium 3.9 mmol/L (3.4-5.0); Sodium 136 mmol/L (137-145); Total Protein 7.5 g/dL (6.3-8.2)
[2024-12-30 13:57] LABS: INR 1.0; Prothrombin Time 13.4 Seconds (11.1-14.7)
[2024-12-30 13:58] LABS: Partial Thromboplastin Time 26.9 Seconds (22.3-36.8)
[2024-12-30 14:11] LABS: Troponin I < 0.012 ng/mL (0.000-0.034)
[2024-12-30 14:34] LABS: Cannabinoid Screen Urine Negative (Negative)
[2024-12-30 15:00] LABS: Add Urine Microscopic? YES; Appearance Urine Clear (Clear); Glucose Urine UA Negative (Negative); Leukocyte Esterase Ur 1+ LEU/UL (Negative); Need Manual Microscopic Reviewed; Nitrate Urine Negative (Negative); Non Pathogenic Casts 0-2; Specific Grav Ur 1.043 (1.001-1.035)
[2024-12-30 17:32] LABS: Syphilis IgG/IgM Antibody Non-Reactive (Nonreactive)
[2024-12-31 15:09] LABS: Anticardiolipin Ab,IgA,Qn <9 APL U/mL (0-11); Anticardiolipin Ab,IgG,Qn <9 GPL U/mL (0-14); Anticardiolipin Ab,IgM,Qn <9 MPL U/mL (0-12); Beta-2 Glycoprotein I Ab, IgA <9 (0-25); Beta-2 Glycoprotein I Ab, IgG <9 (0-20); Beta-2 Glycoprotein I Ab, IgM <9 (0-32)
[2025-01-02 10:09] LABS: ANA by IFA Rfx Titer/Pattern Negative (.)
== END 2024-12-30 17:45 | disposition home or self-care (01) ==
PROVIDERS: Emergency Medicine; Emergency Provider Student in an Organized Health Care Education/Training Program; PCP Nurse Practitioner Family
DX: R47.9 Unspecified speech disturbances (principal); D75.839 Thrombocytosis, unspecified; Z79.82 Long term (current) use of aspirin; Z79.899 Other long term (current) drug therapy
CPT/HCPCS: 36415; 70450; 70496; 70498; 71045; 80053; 80307; 81001; 81241; 82077; 82948; 84484; 85025; 85302; 85305; 85306; 85610; 85652; 85730; 86038; 86146; 86147; 86225; 86593; 87086; 93005; 99284; Q9967

== ENCOUNTER 2025-01-06 11:15 | Outpatient (CLI) | payer OTHER, SELFPAY ==
--- NOTE | ~2025-01-06 | US_ITS ---
US thyroid INDICATION: Thyroid nodules TECHNIQUE: Real-time sonographic images of the thyroid gland were obtained. COMPARISON: No prior studies for comparison. FINDINGS: The right thyroid lobe measures 3.9 x 1 x 1.4 cm. The left thyroid lobe measures 3.1 x 1 x 1.6 cm. There is heterogeneous echotexture and echogenicity throughout the thyroid gland. There are small bilateral thyroid cysts measuring 2 mm on the right and 6 mm on the left. No solid thyroid mass es are identified. No discrete nodules identified. Normal vascular flow is present. IMPRESSION: 1. Heterogeneous thyroid gland containing small bilateral thyroid cysts which are benign. No suspici ous solid thyroid masses are identified in either lobe which meets criteria for biopsy. Reviewed, dictated and finalized at location A. IMPRESSION: 1. Heterogeneous thyroid gland containing small bilateral thyroid cysts which are benign. No suspicious solid thyroid masses are identified in either lobe wh ich meets criteria for biopsy.
== END 2025-01-06 11:16 | disposition home or self-care (01) ==
LOC: MICIMG 11:16
PROVIDERS: PCP Nurse Practitioner Family; Visit Provider Nurse Practitioner Family
DX: E04.2 Nontoxic multinodular goiter (principal)
CPT/HCPCS: 76536

== ENCOUNTER 2025-01-27 15:33 | Outpatient (CLI) | payer OTHER, SELFPAY ==
--- NOTE | ~2025-01-27 | MR_ITS ---
EXAMINATION: MR brain/brain stem wo/w con DATE: 01/27/2025 16:24 INDICATION: Transient cerebral ischemic attack TECHNIQUE: Magnetic resonance imaging (MRI) of the brain and brainstem was performed without and with 14 mL Multihance intravenous contrast. Sequences included sagittal and axial T1-weighted SE, axial d iffusion-weighted FS SE, axial 3D SWAN, axial T2-weighted FLAIR, and axial T2-weighted FSE. Postcontr ast axial and coronal T1-weighted SE was obtained. Apparent diffusion coefficient (ADC) maps were cre ated. COMPARISON: None. FINDINGS: There are no areas of restricted diffusion to suggest acute infarction. No intracranial hemorrhage or abnormal intracranial mass lesion. There are a few small scattered foci of nonspecific increased T2- weighted signal intensity in the cerebral white matter, predominantly involving the deep and perivent ricular white matter which is well within normal limits for age. There are no intraparenchymal signal abnormalities seen on the other pulse sequences. The ventricles are symmetric and normal in size. Th ere are no abnormal extra-axial fluid collections. Flow voids are seen in the cerebral arteries on th e T2-weighted sequences consistent with their expected patency. Visualized orbits and soft tissues ar e unremarkable. There are no areas of abnormal enhancement on the post contrast images. IMPRESSION: 1. Normal for age brain MR. No acute intracranial process. Reviewed, dictated and finalized at location A.
--- OUTSIDE RECORDS SUMMARY | 2025-01-27 16:04 | XMS_ITS | Continuity of Care Document ---
Author Name [facility] Organization [facility] Care Team Providers Care Pricing Lead Name Role Phone [facility] Unavailable Unavailable Problems Combined list of problems [...] DoD SEBACEOUS GLAND DISORDER HYPERPLASIA Inactive Condition [facility] ACROCHORDON Active Condition [facility] visit for: issue repeat prescription Inactive Condition [facility] SKIN NEOPLASM Active Condition DoD mismatch of sleep / wake schedule with lifestyle needs Inactive Condition DoD upper back pain (between shoulder blades) Inactive Condition [facility] CERVICALGIA Active Condition [facility] visit for: administrative purpose Inactive Condition DoD anxiety Active Condition [facility] fear of possible cancer Active Condition [facility] ADJUSTMENT DISORDER WITH DEPRESSED MOOD Inactive Condition [facility] UPPER RESPIRATORY INFECTION Inactive Condition [facility] MIGRAINE HEADACHE Active Condition [facility] visit for: issue medical certificate Active Condition [facility] Medications Combined list of outpatient medications from [...] ORAL, SCOTT PHARMACE, 100 ea. BOTTLE Active [id number] 4 2023 30 Pharmac y Data Transac tion Service Facilit y Allergies, Adverse Reactions, Alerts Combined list of allergies from Department of Defense and Veterans Affairs facilities. It does not include entries that were removed or entered in error. Substance Category Reaction Severity Reaction type Status Date Reported Comments Source No Known Allergies Drug allergy (disorder) active 09/04/2008 [facility] Immunizations Combined list of available immunizations from the Department of Defense and Veterans Affairs facilities. Immunization Series Date Given Administered By Site Reaction Lot Number CVX Code Drug [employer] Status Comments Source COVID Vaccine Moderna 2020 [...] ADM Date DC Date Status Disposition Source [facility](Ped iatric Clinic) OUTPATIENT [id number] NILS Stone 09/04 Released w/o Limitations [facility](P ediatri c Clinic) [facility] Element B-[facility]) OUTPATIENT [id number] KALINA WHEAT AASIF H 10/08 Released w/o Limitations [facility](N [facility] Element B-1) [facility] Element B[facility]) OUTPATIENT [id number] med issue IZA BISHOP 10/30 Released w/o Limitations [facility](RSN [facility] Element B-1) [facility](ZZZ[facility] N [facility] Element C-2) OUTPATIENT [id number] ongoing cough /diffic ulty breathi ng FARZANA AGEE 05/12 Released w/o Limitations [facility](ZZZ [facility] Element C-2) [facility] N [facility] Element C-2) OUTPATIENT [id number] fu on meds FARZANA AGEE 08/17 Released w/o Limitations [facility](ZZZ [facility] Element C-2) [facility] N [facility] Element A-2) TELE CONSULT [id number] allergy meds needed JENSEN WILLIAM Lui 10/08 [facility] Element A-2) [facility] Element C-2) OUTPATIENT [id number] anxiety -med to fly-(mo m of pt yesterd ay) FARZANA AGEE 10/08 Released w/o Limitations [facility] Element C-2) [facility] Element C-2) TELE CONSULT [id number] presc refill /citalo FARZANA Hilario 11/02 [facility] Element C-2) [facility] Element C[facility]2) OUTPATIENT [id number] neck pain/ca n't move to left/ri ght/up or down FARZANA AGEE 11/16 Released w/o Limitations [facility] Element C-2) [facility]) OUTPATIENT [id number] 35 y/o F: s/p fall, back px PEDRO MAY 12/03 Released w/o Limitations [facility] Emer[facility]) [facility] N [facility] Element C-2) TELE CONSULT [id number] RX REFILL NEEDED NATALIO BURGER 01/18 [facility] Element C-2) [facility] Element C-2) OUTPATIENT [id number] f/u for meds IZA BISHOP 02/11 Released w/o Limitations [facility] Element C-2) [facility] Element C[facility]2) TELE CONSULT [id number] RX REFILL/ XANAX EUNICE GUILLORY 04/[address] [facility](ZZZ RSN [facility] Element C-2) [address] [place] [address] [facility]co [place] [facility] [place] TELE CONSULT [id number] Notes Entered by: NEISHA STERN 30 Aug 2011 1558 ------- ------- ------- ------- -- MIKE SANCHEZ 08/[address] [place] [address] Blane [facility]S cott [facility] [place]) [address] [place] [address] [place]Sco tt [facility] [place]) OUTPATIENT [id number] JUAN Higgins pt 09/19 Released w/o Limitations [address] [place] [address] Blane [facility] cott [facility] [place] [address] [place] [address] [facility]Sco tt [facility] [place]) TELE CONSULT [id number] Notes Entered by: Dora DELGADO 27 Oct 2011 1312 ------- ------- ------- ------- -- Med refill citalop nancy 20 mg twice daily [id number] Amna/ JUAN Schwab 10/[address] [place] [address] Blane [facility] [place]) [address] [place] [address] [facility]Sco tt [facility] [place]) TELE CONSULT [id number] Notes Entered by: TONYA MESSINA CIA 26 Jan 2012 0852 ------- ------- ------- ------- -- Med refill - amna - [facility] HEMANT PITTMAN 01/[address] [place] [address] Blane [facility] [facility] [place]) [address] [place] [address] Blane [facility]Sco tt [facility] [place]) OUTPATIENT [id number] f/u Anxiety JUAN THOMSON 01/26 Released w/o Limitations [address] [place] [address] Blane [facility]S [facility] Fam Res [employer]m [employer]) [address] [place] [address] Blane [facility] ([facility] [place]Sco tt [facility] [place]) OUTPATIENT [id number] Ja nolan stomach area [phone] RAJESH BARKER 07/09 Released w/o Limitations [address] [place] [address] Blane [place] ([facility]S [facility] Fam Res Tm Green) [address] [place] [address] Blane [facility]) TELE CONSULT [id number] Notes Entered by: GLADIS DAUGHERTY 09 Jul 2012 1733 ------- ------- ------- ------- -- Dr. Praveena Copeland: Pt needs mammogr am order; GLADIS DAUGHERTY 07/[address] [place] [address] Blane MERHipolito ([facility] Procedures Combined list of: 1) Procedures from Department of Veterans Affairs facilities going back up to thelast 18 months, not all VA non-surgical procedures are included; 2) All procedures from the Department of Defense facilities. Procedure Procedure Type Code Date Perfomer Comments Sourc e No data available for this section [facility]ulatory [facility] TELE ASSESS & MGT SRV PROV QUAL [...] HR/SOON APT;5-10 MIN MED DIS 08/30/19 12 DoD PSYCHIATRIC EVALUATION OF HOSPITAL RECORDS, OTHER PSYCHIATRIC REPORTS, PSYCHOMETRIC AND/OR PROJECTIVE TESTS, AND OTHER ACCUMULATED DATA FOR MEDICALDIAGNOSTIC PURPOSES 09/11/19 09 DoD Non-Physician Phone Call To Patient/Provider Brief (5-10min) Non-Physician Phone Call To Patient/Provide r Brief (5-10min) [id number] 10/27/19 12 JUAN THOMSON DoD Non-Physician Phone Call To Patient/Provider Brief (5-10min) Non-Physician Phone Call To Patient/Provide r Brief (5-10min) [id number] 08/31/19 12 MIKE SANCHEZ [facility] Psychiatric Evaluation Review of Records and Reports Psychiatric Evaluation Review of Records and Reports [id number] 09/11/19 09 ALLYSON HIGGINBOTHAM [facility] Social History Combined list of available smoking, tobacco, and other social history from Department of Defense and Veterans Affairs facilities. Social History Type Response Date Comment [facility] e This section is an empty social [...] Plan No data available for this section 01/27/2025 Ambulatory Pharmacy Functional Status Combined list of recent functional and cognitive assessments recorded at Department of Defense and Veterans Affairs (VA).VA Functional [place] Measurement (FIM) Scale: 1 = Total Assistance (Subject = 0% +), 2 = Maximal Assistance (Subject = 25% +), 3 = Moderate Assistance (Subject = 50% +), 4 = Minimal Assistance (Subject = 75% +), 5 = Supervision, 6 = Modified [place] (Device), 7 = Complete [place] (Timely, Safely). Assessment Date/Time Source Assessment Type Assessment Skill Assessment Score Assessment Details No data available for this section
== END 2025-01-27 15:34 | disposition home or self-care (01) ==
PROVIDERS: PCP Nurse Practitioner Family; Visit Provider Nurse Practitioner Family
DX: G45.9 Transient cerebral ischemic attack, unspecified (principal)
CPT/HCPCS: 70553; A9577